=== PATIENT | female | born 2000 | race African-American/Black ===

== ENCOUNTER 2023-05-08 19:22 | Emergency (ER) | payer OTHER, BC | END 2023-05-08 21:40 | disposition home or self-care (01) | LOC: ERS 19:22 | DX: Z04.1 Encounter for examination and observation following transport accident (principal); V43.02XA Car driver injured in collision with other type car in nontraffic accident, initial encounter; Y92.481 Parking lot as the place of occurrence of the external cause | CPT/HCPCS: 99283 ==

== ENCOUNTER 2025-05-12 19:45 | Emergency (ER) | payer BC ==
[2025-05-12] MEDS ORDERED: Lidocaine 1% w/Epinephrine 1:100K 20 ML VIAL ONE (22:42)
== END 2025-05-12 23:47 | disposition home or self-care (01) ==
LOC: ERS 19:45
DX: L73.2 Hidradenitis suppurativa (principal); L02.412 Cutaneous abscess of left axilla; E11.9 Type 2 diabetes mellitus without complications; Z79.84 Long term (current) use of oral hypoglycemic drugs; Z79.85 Long-term (current) use of injectable non-insulin antidiabetic drugs
CPT/HCPCS: 87070; 87205; 99283